=== PATIENT | female | born 1945 | race Caucasian/White ===

== ENCOUNTER 2017-08-21 15:25 | Outpatient (CLI) | payer MEDICARE | END 2017-08-21 15:26 | disposition home or self-care (01) | LOC: BICRAD 15:25 | PROVIDERS: ATTEND Internal Medicine Cardiovascular Disease | DX: R06.02 Shortness of breath (principal); J44.9 Chronic obstructive pulmonary disease, unspecified | CPT/HCPCS: 71020 ==